=== PATIENT | female | born 1980 | race Hispanic/Latino ===

== ENCOUNTER 2017-03-29 19:07 | Emergency (ER) | payer OTHER ==
[~2017-03-29] VITALS: Ht 154.9 cm; Wt 72.7 kg
[~2017-03-29 19:07] MED LIST: DOCU240C41 PO; FERR-83 PO
[2017-03-29 19:14] VITALS: BP 118/74; PULSE 92; RESP 18; O2SAT 99
[2017-03-29 20:03] LABS: APPEARANCE,URINE CLEAR (CLEAR,HAZY); COLOR,URINE YELLOW (YELLOW); OCCULT BLOOD,URINE NEGATIVE (NEGATIVE); PH,URINE 5.5 (5.0-8.0); UROBILINOGEN,URINE NORMAL (NORMAL)
--- NOTE | 2017-03-29 21:18 | ED.REPORT ---
HPI-Headache Date of Service Mar 29, 2017 ED Provider: Brett Blackwell DO Patient is a 36 year old female who presents to the ED complaining of intermittent right shinto pain for the past 2 months. Associated symptoms include a lingering headache surrounding the shinto and intermittent right eyelid twitching. She denies neck stiffness. The patient reports that she gets episodes of sharp pain in the shinto that last about 20 seconds Nursing Notes Stated Complaint: SHARP PAIN IN RIGHT MU-ISM, RIGHT EYE TWITCHING Chief Complaint: General Complaint Nursing Notes Reviewed: Yes Allergies: Coded Allergies: Penicillins (Verified Allergy, Unknown, 03/29/17) Scheduled Docusate Calcium (Stool Softener) 240 Mg Capsule 240 MG PO DAILY Ferrous Sulfate (Ferrous Sulfate) 325 Mg Tablet 325 MG PO TID General Time Seen by MD: 21:16 Chief Complaint Cluster headache Hx Obtained From: Patient Arrived By: Walk-in Sudden in Onset?: Yes Onset Occurred: More than a week ago... (2 months) Symptom Duration: Intermittent Location: : Temporal right Quality: Sharp, Stabbing Severity: Current: No pain currently Recent Healthcare: No recent doctor visit, No recent hospitalization Similar Sx Previous: Yes Past Medical History Past Medical History none reported Past Surgical History tubal Smoking History Never Smoker Ambulatory Status Independent Review of Systems Constitutional: Denies: Chills, Fever Musculoskeletal: Denies: Neck pain Neurologic: Reports: Headache, Denies: Numbness, Weakness Complete sys rev & neg: except as marked. Respiratory: Denies: Non-productive cough, Shortness of breath Female: Denies: Allergy / Immune: Denies: Hives, Itching Physical Exam Initial Vital Signs Vital Signs (First) Date Time Temp Pulse Resp B/P Pulse Ox O2 Delivery O2 Flow Rate FiO2 03/29/17 19:14 37.2 92 18 118/74 99 Room Air Initial VS: Reviewed General/Constitutional: Awake, Alert, No acute distress Head / Eyes: Atraumatic, Normocephalic, PERRL, EOMI Neck: Atraumatic, Supple, Full range of motion Neurologic: Oriented X3, Speech NL, No motor deficits, No sensory deficits Respiratory / Chest: Atraumatic, Breath sounds NL, Breath sounds = bilat, No respiratory distress Cardiovascular: Heart rate NL, Regular rhythm, Heart sounds NL Skin: Atraumatic, Color NL, No rash, Warm, Dry Psychiatric: Affect NL, Mood NL Interpretation & Diagnostics Lab Results Interpretation Result Diagram: 03/29/17 2145 03/29/17 214 Test 03/29/17 19:40 03/29/17 21:45 Urine Color Yellow (YELLOW) Urine Appearance Clear (CLEAR,HAZY) Urine pH 5.5 (5.0-8.0) Urine Specific [place] >1.030 (1.003-1.035) Urine Protein Negativemg/dL (NEG,TRACE) Urine Glucose (UA) 500mg/dL (NEGATIVE) Urine Ketones Negativemg/dL (NEGATIVE) Urine Occult Blood Negative (NEGATIVE) Urine Nitrite Negative (NEGATIVE) Urine Bilirubin Negative (NEGATIVE) Urine Urobilinogen Normalmg/dL (NORMAL) Urine Leukocyte Esterase Trace (NEGATIVE) Urine RBC 0-2/hpf (0-2) Urine WBC 6-10/hpf (0-5) Urine Epithelial Cells Moderate/hpf (NONE-MOD) Urine Crystals None seen (NONE SEEN) Urine Bacteria Many/hpf (NONE-FEW) Urine Hyaline Casts None/lpf (NONE) Urine Granular Casts None seen (NONE SEEN) Urine Waxy Casts None seen (NONE SEEN) Urine Red Blood Cell Casts None seen (NONE SEEN) Urine White Blood Cell Casts None seen (NONE SEEN) Urine Mucus None seen (None Seen) Urine Trichomonas None seen (NONE SEEN) Urine Yeast None (NONE SEEN) Urinalysis Comment None Urine Culture Reflexed Indicated White Blood Count 9.2th/mm3 (3.8-10.1) Red Blood Count 4.16mil/mm3 (3.90-5.20) Hemoglobin 12.1g/dL (12.0-15.6) Hematocrit 37.1% (35.0-46.0) Mean Corpuscular Volume 89.2fL (81-100) Mean Corpuscular Hemoglobin 29.1pg (27.0-35.0) Mean Corpuscular Hemoglobin Concent 32.6% (32.0-37.0) Red Cell Distribution Width 13.5% (12.3-15.4) Platelet Count 309bil/L (150-400) Neutrophils (%) (Auto) 59.9% (40-74) Lymphocytes (%) (Auto) 29.8% (14-46) Monocytes (%) (Auto) 8.5% (4-12) Eosinophils (%) (Auto) 1.4% (0-5) Basophils (%) (Auto) 0.2% (0-3) Sodium Level 138mEq/L (134-144) Potassium Level 4.3mEq/L (3.5-5.2) Chloride Level 104mEq/L (97-108) Carbon Dioxide Level 22mmol/L (18-29) Blood Urea Nitrogen 10mg/dL (6-20) Creatinine 0.62mg/dL (0.57-1.00) Estimat Glomerular Filtration Rate 154mL/min (>59) Glucose Level 106mg/dL (60-99) Calcium Level 8.8mg/dL (8.5-10.1) Total Bilirubin 0.2mg/dL (0.0-1.2) Aspartate Amino Transf (AST/SGOT) 28U/L (0-50) Alanine Aminotransferase (ALT/SGPT) 18U/L (0-32) Alkaline Phosphatase 88U/L (25-150) C-Reactive Protein < 0.0mg/dL (0.0-0.5) Total Protein 7.2g/dL (6.4-8.4) Albumin 3.8g/dL (3.4-5.0) Hold Vidal Top Tube Received (Received) CT Head Interpretation IMPRESSION: Normal examination, source of right temporal headache is not seen. Dictated by: Héctor Martin M.D. on 03/29/2017 at 22:02 Approved by: Héctor Martin M.D. on 03/29/2017 at 22:03 Interpretation / Wet Read by: Interpret - Radiologist Re-Eval/Medical Decision Med Decision/Clinical Course Urinalysis showed many bacteria and signs of infection. Given Bactrim to treat infection. Head CT was normal, she denied a lumbar puncture at this time. She was given a referral to follow up with neuro. I explained clearly that lumbar puncture was required to rule out meningitis and subarachnoid hemorrhage. Dorothea has no pain now she states that headaches have been very fleeting and she does not feel that she needs a lumbar puncture. To be honestly think she may have a component of trigeminal neuralgia. Either way she is going to follow up closely with neurology. If she developed a fever, stiff neck or headache comes back she will come back in and we will consider lumbar puncture at that time. I will culture her urine. We will treat with Bactrim empirically. Re-Evaluation/Progress : Time of Eval: 23:10 Re-Evaluation/Progress Note: Discussed CT results. Patient did not want a LP. Discussed plan for discharge. Patient understands and agrees to plan. All questions were addressed. Counseled Regarding: Diagnosis, Lab results, Need for follow-up, When/why to return to ED Discharge & Departure Impression: Primary Impression: Urinary tract infection Urinary tract infection type: site unspecified Hematuria presence: without hematuria Qualified Code: N39.0 - Urinary tract infection, site not specified Additional Impression: Headache Headache type: cluster Headache chronicity pattern: episodic headache Intractability: not intractable Qualified Code: G44.019 - Episodic cluster headache, not intractable Disposition: Home Discharge Condition All VS Reviewed: Yes Condition: Stable Patient Instructions: Trigeminal Neuralgia (ED), Urinary Tract Infection in Women (ED) Additional Instructions: Your CT scan was normal and reassuring. A lumbar puncture is required to rule out bleeding and infection as we discussed. If you develop a fever, neck stiffness or sudden onset severe headache then come back emergent department suite to perform this procedure. You do have an UTI. Take Bactrim 2x a day for 5 days to treat the infection. Take Tylenol/Motrin as directed for pain. You can also take 1 Valium every 8 hours as needed for the muscle spasms. Do not drink alcohol or drive with the Valium. Follow up with the neuro referral attached this week for further evaluation regarding your headaches. I think there is a possibility you might have trigeminal neuralgia. Return to the emergency department if you develop any new or concerning symptoms. Referrals: Marleny Corbin MD (PCP) Josefina Kumar MD Attestation Portions of this note were transcribed by Jeannette De Jesus. I, Dr. Blackwell personally performed the history, physical exam and medical decision-making; I reviewed and confirmed the accuracy of the information in the transcribed note. Signed by: Tracy Galicia, 03/29/17 and 2129 copies to: Josefina Kumar MD, Todd P DO Mar 29, 2017 21:18 Sima De Jesus Mar 29, 2017 21:26
--- NOTE | 2017-03-29 22:04 | DRSVH ---
PROCEDURE: CT BRAIN WITHOUT CONTRAST ([id number]) INDICATIONS: right temporal headache TECHNIQUE: Noncontrast 4.5 mm thick angled axial sections acquired from the foramen magnum to the vertex, with c oronal reformats. COMPARISON: None. FINDINGS: Image quality: Excellent. CSF spaces: Basal cisterns are patent. No extra-axial fluid collections. Ventricles are normal in size and shape. Brain: No midline shift. No intracranial masses or hemorrhage. Kowalski-white matter interface is norm al. Skull and face: Calvarium and visualized facial bones are intact, without suspicious lesions. Sinuses: Visualized sinuses and mastoids are clear. IMPRESSION: Normal examination, source of right temporal headache is not seen. Dictated by: Héctor Martin M.D. on 03/29/2017 at 22:02 Approved by: Héctor Martin M.D. on 03/29/2017 at 22:03
[2017-03-29 22:09] LABS: BASOPHILS % (AUTO) 0.2 % (0-3); EOSINOPHILS % (AUTO) 1.4 % (0-5); MONOCYTES % (AUTO) 8.5 % (4-12); Mean Corpuscular Hemoglobin 29.1 pg (27.0-35.0); Mean Corpuscular Volume 89.2 fL (81-100); NEUTROPHILS % (AUTO) 59.9 % (40-74); Platelet Count 309 bil/L (150-400)
[2017-03-29] MEDS ORDERED: Trimethoprim-Sulfa 160 mg-800 mg Tablet PO ONE (23:10)
[2017-03-29 23:43] VITALS: BP 110/64; PULSE 63; RESP 18; O2SAT 100
== END 2017-03-29 23:47 | disposition home or self-care (01) ==
LOC: SED 19:07
DX: N39.0 Urinary tract infection, site not specified (principal); G44.019 Episodic cluster headache, not intractable; Z88.0 Allergy status to penicillin

== ENCOUNTER 2017-04-20 02:24 | Emergency (ER) | payer OTHER ==
[~2017-04-20] VITALS: Ht 154.9 cm; Wt 72.7 kg
[2017-04-20 02:31] VITALS: BP 109/74; PULSE 89; RESP 16; O2SAT 99
--- NOTE | 2017-04-20 02:32 | ED.REPORT ---
HPI-Headache Date of Service Apr 20, 2017 ED Provider: Dr. Celso Jurado MD A 36 year old female with a history of migraines presents to the ED complaining of a headache that began this morning. Her symptoms first appeared this morning after waking up. She reports similar symptoms previously but this episode has persisted. She denies any fevers, neck stiffness, confusion, visual disturbances , difficulty hearing, speech abnormalities or recent injuries. Patient was recently seen in the ED on 03/29 for a similar headache. Lab work revealed a UTI that was treated with Bactrim. She agreed to follow up with her PCP for further evaluation and trigeminal neuralgia work-up. Nursing Notes Stated Complaint: HEADACHE Chief Complaint: Headache Nursing Notes Reviewed: Yes Allergies: Coded Allergies: Penicillins (Verified Allergy, Unknown, 03/29/17) Scheduled PRN Prochlorperazine Maleate (Compazine Suppository) 25 Mg Supp.rect 25 MG RC Q8 PRN PRN For Nausea/Vomiting General Time Seen by MD: 02:32 Chief Complaint Headache Hx Obtained From: Patient Arrived By: Walk-in Sudden in Onset?: No Onset Occurred: 1 day ago Symptom Duration: Since onset Quality: Aching, Painful Severity: Current: Mild Severity: Maximum: Moderate Associated with: Denies: Fever Pertinent Negative: Pt denies other symptoms Recent Healthcare: No recent hospitalization, Recent doctor visit Risk-Headache )( SAH Risk Stratification RF Statements: Risk factors reviewed )( IC Mass Risk Stratification RF Statements: Risk factors reviewed Past Medical History Past Medical History None reported Past Surgical History Tubal Ligation Smoking History Never Smoker Social History Other Social History: Good social support, Local resident Ambulatory Status Independent Review of Systems Constitutional: Denies: Chills, Fever Ears / Nose / Throat: Denies: Hearing loss bilateral Musculoskeletal: Denies: Neck pain Neurologic: Reports: Headache, Denies: Confusion, Slurred speech, Vision change Complete sys rev & neg: except as marked. Physical Exam Initial Vital Signs Vital Signs (First) Date Time Temp Pulse Resp B/P Pulse Ox O2 Delivery O2 Flow Rate FiO2 04/20/17 02:31 37.4 89 16 109/74 99 Room Air Initial VS: Reviewed Extremities: Vascular intact, Neuro intact, No swelling, No tenderness Skin: Warm, Dry, No cyanosis Psychiatric: Mood/affect normal, Behavior normal, Normal thought content General/Constitutional: Awake, Alert, No acute distress Head / Eyes: Atraumatic, Normocephalic, PERRL Neck: Atraumatic, Supple, No meningismus, Full range of motion Neurologic: Oriented X3, Speech NL, No motor deficits, No sensory deficits, CN II - XII intact, Reflexes equal bilat Respiratory / Chest: Atraumatic, Breath sounds NL, Breath sounds = bilat, No respiratory distress Cardiovascular: Heart rate NL, Regular rhythm, Heart sounds NL Interpretation & Diagnostics Lab Results Interpretation Result Diagram: 04/20/17 0325 04/20/17 0325 Test 04/20/17 03:25 White Blood Count 7.3th/mm3 (3.8-10.1) Red Blood Count 3.95mil/mm3 (3.90-5.20) Hemoglobin 11.4g/dL (12.0-15.6) Hematocrit 35.4% (35.0-46.0) Mean Corpuscular Volume 89.6fL (81-100) Mean Corpuscular Hemoglobin 28.9pg (27.0-35.0) Mean Corpuscular Hemoglobin Concent 32.2% (32.0-37.0) Red Cell Distribution Width 13.7% (12.3-15.4) Platelet Count 307bil/L (150-400) Neutrophils (%) (Auto) 55.6% (40-74) Lymphocytes (%) (Auto) 31.0% (14-46) Monocytes (%) (Auto) 11.1% (4-12) Eosinophils (%) (Auto) 1.6% (0-5) Basophils (%) (Auto) 0.3% (0-3) Erythrocyte Sedimentation Rate 9mm/hr (0-32) Sodium Level 137mEq/L (134-144) Potassium Level 3.5mEq/L (3.5-5.2) Chloride Level 103mEq/L (97-108) Carbon Dioxide Level 20mmol/L (18-29) Blood Urea Nitrogen 11mg/dL (6-20) Creatinine 0.62mg/dL (0.57-1.00) Estimat Glomerular Filtration Rate 154mL/min (>59) Glucose Level 163mg/dL (60-99) Calcium Level 8.4mg/dL (8.5-10.1) C-Reactive Protein 0.1mg/dL (0.0-0.5) Re-Eval/Medical Decision Med Decision/Clinical Course 28-year-old female with rare occasional migraines presents with a fairly typical migraine. Trigger may have been muscle strain in the back of the neck. Improved here with migraine meds. No indication for advanced imaging. Follow up with PCP. Re-Evaluation/Progress : Time of Eval: 04:29 )( Patient Status: Condition improved, Pain improved Re-Evaluation/Progress Note: Patient is re-evaluated. Discussed results with the patient. All questions about the treatment plan are addressed. The patient understands and agrees with the intended treatment plan. Counseled Regarding: Diagnosis, Need for follow-up, When/why to return to ED Discharge & Departure Impression: Primary Impression: Migraine headache Migraine type: unspecified Status migrainosus presence: without status migrainosus Intractability: not intractable Qualified Code: G43.909 - Migraine, unspecified, not intractable, without status migrainosus Disposition: Home Discharge Condition All VS Reviewed: Yes Condition: Improved Patient Instructions: Migraine Headache (ED) Additional Instructions: There is no evidence of dangerous cause for your headache. This is highly likely migraine. You may use [id number] migraine products such as Advil migraine. If that is insufficient, you may use a Compazine suppository, which is helpful against both nausea and headache. Follow-up with your doctor in the office. He may follow-up at residency clinic if local coverage as needed. Return for any new or changing symptoms or other issues of concern. Referrals: NOPCP (PCP) [facility] Scribe Attestation Portions of this note were transcribed by Marcel Ko. I, Dr. Jurado personally performed the history, physical exam and medical decision-making; I reviewed and confirmed the accuracy of the information in the transcribed note. Signed by: Tracy Hand, 04/20/17 0430. Celso Jurado MD Apr 20, 2017 02:32 MARCEL KO Apr 20, 2017 02:36
[2017-04-20] MEDS ORDERED: Ondansetron 2 mg/mL 2 mL Inj IVPUSH ONE (02:55)
[2017-04-20] MEDS ORDERED: Haloperidol 5 mg/mL Inj IVPUSH ONE (02:55)
[2017-04-20] MEDS ORDERED: 0.9% Sodium Chloride 1,000 ML IV ONE (02:55)
[2017-04-20] MEDS ORDERED: Dexamethasone 10 mg/mL Inj IVPUSH ONE (02:55)
[2017-04-20 03:39] LABS: BASOPHILS % (AUTO) 0.3 % (0-3); EOSINOPHILS % (AUTO) 1.6 % (0-5); MONOCYTES % (AUTO) 11.1 % (4-12); Mean Corpuscular Hemoglobin 28.9 pg (27.0-35.0); Mean Corpuscular Volume 89.6 fL (81-100); NEUTROPHILS % (AUTO) 55.6 % (40-74); Platelet Count 307 bil/L (150-400)
[2017-04-20 04:01] LABS: ERYTHROCYTE SEDIMENTATION RATE 9 mm/hr (0-32)
[2017-04-20] MEDS ORDERED: PROC25SU30 RC (04:27)
[2017-04-20 04:35] VITALS: BP 109/75; PULSE 61; RESP 14; O2SAT 99
== END 2017-04-20 04:36 | disposition home or self-care (01) ==
LOC: SED 02:24
DX: G43.909 Migraine, unspecified, not intractable, without status migrainosus (principal); Z88.0 Allergy status to penicillin
CPT/HCPCS: 36415; 80048; 85025; 85651; 86140; 96361; 96374; 96375; 99284; J1100; J1200; J1630; J1885; J2405; J7030

== ENCOUNTER 2017-06-01 11:58 | Emergency (ER) | payer SELFPAY ==
[~2017-06-01] VITALS: Ht 157.5 cm; Wt 77.3 kg
[~2017-06-01 11:58] MED LIST changes: -DOCU240C41 PO; -FERR-83 PO; +PROC25SU30 RC
[2017-06-01 12:05] VITALS: BP 116/78; PULSE 74; RESP 15; O2SAT 99
--- NOTE | 2017-06-01 13:45 | ED.REPORT ---
HPI-Neck Pain Free Text HPI Notes Jun 01, 2017 ED Provider: Castillo Corbett PA-C Dorothea is an otherwise healthy 36-year-old female presenting to the emergency department with neck pain. Patient reports slipping and sliding down a short flight of stairs several days ago. She denies head or neck injury at that time as well as neurological symptoms. Reports noting a stiff neck 2 days later which increased in intensity throughout the day. Reports limited range of motion her neck at this time. Denies neurological symptoms such as numbness/ weakness in her limbs. Also complains of an occipital headache that radiates to her forehead, global and throbbing. Denies fever, shaking chills, abdominal pain, vomiting. Denies history of IV drug use, cancer. Denies saddle anesthesia, bowel/bladder dysfunction. Nursing Notes Stated Complaint: BACK/NECK PAIN,HEADACHE Chief Complaint: Back Pain or Injury Nursing Notes Reviewed: Yes Allergies: Coded Allergies: Penicillins (Verified Allergy, Severe, seizures as a child, 06/01/17) Scheduled PRN Cyclobenzaprine (Cyclobenzaprine) 5 Mg Tablet 5-10 MG PO TID PRN PRN Spasm Prochlorperazine Maleate (Compazine Suppository) 25 Mg Supp.rect 25 MG RC Q8 PRN PRN For Nausea/Vomiting General Time Seen by Provider: 12:26 Chief Complaint Neck pain Risk-Neck Pain Nexus C-Spine Criteria No post midline tendernes, Not intoxicated, Normal level or alertness, No focal neuro deficits, No distracting injuries Past Medical History Past Medical History None reported Past Surgical History Tubal Ligation Smoking History Never Smoker Social History Other Social History: Good social support, Local resident Ambulatory Status Independent Review of Systems Review of Systems Note: Negative unless stated otherwise in history of present illness Physical Exam General: Well appearing, well developed, well nourished, no acute distress. Head: Atraumatic, normocephalic. Neck: Normal to inspection, negative midline cervical spine tenderness, positive bilateral paraspinal tenderness. Good range of motion. Back: Normal to inspection, negative midline sinus process tenderness. Eyes: No scleral icterus or injection. No discharge. Vision grossly intact. ENT: Voice clear, hearing grossly intact. Respiratory: No respiratory distress, no increased work of breathing. Speaks in complete sentences. Skin: Warm and dry. Neurological: Normal gait, heel rise, toe rise, Romberg. Deltoid abduction, wrist flexion and extension, finger flexion and abduction strength 5/5 B/L. Sensation to light touch intact over deltoid as well as first, third and fifth digits B/L. Biceps, triceps and brachioradialis reflexes 2+ B/L. Psychological: alert and oriented. Speech appropriate, linear and logical. Behavior appropriate. Initial Vital Signs Vital Signs (First) Date Time Temp Pulse Resp B/P Pulse Ox O2 Delivery O2 Flow Rate FiO2 06/01/17 12:05 36.7 74 15 116/78 99 Room Air Normal Re-Eval/Medical Decision Med Decision/Clinical Course Otherwise healthy 36-year-old female presents emergency Department with 3 day history of neck pain. Neck pain is preceded by a slip and fall down a short flight of stairs with no acute injury. Patient denies fever, neurological symptoms. No concerning history. Physical examination reveals somewhat limited range of motion of the neck, positive for paraspinal tenderness, negative for cervical spine tenderness or midline thoracic or lumbar spinous process tenderness. Neurological examination is normal. Vital signs are normal, specifically afebrile. This is cervical strain, and I am reassured against meningitis, fracture, local infection, progressive neurologic changes. C-spine is cleared by nexus criteria. Advised [id number] analgesia, provided a small amount of cyclobenzaprine with precautions. Provided a work note. Advised regarding primary care follow- up, provided emergency return precautions. Patient verbalized understanding of , and consent to, the plan. Discharge & Departure Primary Impression: Cervical strain Encounter type: initial encounter Qualified Code: S16.1XXA - Strain of muscle, fascia and tendon at neck level, initial encounter Disposition: Home Discharge Condition All VS Reviewed: Yes Condition: Stable Patient Instructions: Cervical Neck Strain Exercises (GEN), Cervical Strain (ED ) Additional Instructions: Evaluation for neck pain in the emergency department includes interview and physical examination which are reassuring that this is unlikely to be caused by an immediate danger conditions such as a fracture or infection. I believe you are stable and safe to go home. I believe the pain you are feeling in your neck is cervical strain, and injury to the muscles along side your spine. This may be worse tomorrow and the next day, which is to be expected, but should improve steadily after that. The pain is best treated with 1000 mg of acetaminophen (Tylenol) every 6 hours. I will write you a prescription for a small amount of cyclobenzaprine, a muscle relaxant. Do not drive or drink alcohol within 4 hours of taking this medication. Follow up with your primary care provider if this is not significantly improved in one week. Return to emergency department for any new or worsening symptoms including suddenly increasing pain, numbness/weakness in a limb. Referrals: GRISELDA SAEED (PCP) E[facility]ising Provider for APC: Caleb Dixon MD copies to: GRISELDA SAEED Seth PA-C Jun 01, 2017 13:45
[2017-06-01] MEDS ORDERED: CYCL5TAB PO (13:46)
[2017-06-01 14:07] VITALS: BP 126/82; PULSE 68; RESP 16; O2SAT 100
== END 2017-06-01 14:07 | disposition home or self-care (01) ==
LOC: SED 11:58
DX: S16.1XXA Strain of muscle, fascia and tendon at neck level, initial encounter (principal); W10.8XXA Fall (on) (from) other stairs and steps, initial encounter; Y93.01 Activity, walking, marching and hiking; Y99.8 Other external cause status; Y92.89 Other specified places as the place of occurrence of the external cause; Z98.51 Tubal ligation status; Z98.84 Bariatric surgery status; Z88.0 Allergy status to penicillin